=== PATIENT | female | born 1965 | race Caucasian/White ===

== ENCOUNTER → 2016-08-29 | Outpatient (CLI) | payer BC ==
--- NOTE | 2016-08-29 15:36 | DI ---
Indication: ITS.REASON: M54.2 NECK PAIN; G62.9 NEUROPATHY PROCEDURE: MRI CERVICAL SPINE W/O CONTRAS: Encounter: Initial Comparison: None Technique: Multiplanar multisequence MR imaging of the cervical spine was performed without contrast. Findings: Alignment of the cervical spine is within normal limits. No acute fracture. Prominent hemangioma noted within the C4 vertebra. The cervical and visualized upper thoracic spinal cord signal intensity is normal. The paraspinal soft tissues are unremarkable. Segmental analysis: C2-C3: Normal C3-C4: Mild uncovertebral degenerative changes contributing to mild bilateral neural foraminal narrowing. No significant central canal stenosis or focal disk protrusion. C4-C5: Bilobed disk osteophyte complex resulting in mild central canal and severe bilateral neural foraminal stenosis. C5-C6: Disk osteophyte complex compressing the thecal sac with moderate central canal stenosis and severe bilateral neural foraminal stenosis. C6-C7: Small central disk protrusion causing mild central canal stenosis. Mild to moderate bilateral neural foraminal stenosis. C7-T1: Normal Impression: Degenerative disk and facet disease with areas of central canal and neural foraminal stenosis. .
== END ==
LOC: IMA 14:13
DX: M47.892 Other spondylosis, cervical region (principal); M48.02 Spinal stenosis, cervical region; M50.121 Cervical disc disorder at C4-C5 level with radiculopathy; M50.223 Other cervical disc displacement at C6-C7 level; G62.9 Polyneuropathy, unspecified

== ENCOUNTER → 2016-09-02 | Outpatient (CLI) | payer BC | LOC: WC.BC 15:25 | DX: Z12.31 Encounter for screening mammogram for malignant neoplasm of breast (principal) | CPT/HCPCS: 77063; G0202 ==

== ENCOUNTER 2016-09-19 05:56 | Day surgery (SDC) | payer BC ==
[~2016-09-19] VITALS: Ht 154.9 cm; Wt 101.5 kg
[~2016-09-19 05:56] MED LIST: CARV6.252 PO; METF10002 PO; OMEP20CA10 PO; PHEN-742 PO; TRIA1TAB3 PO
[2016-09-19 06:18] VITALS: Ht 154.9 cm; Wt 101.5 kg
[2016-09-19 06:32] VITALS: BP 152/90; PULSE 85; RESP 16; TEMP 98.8; O2SAT 94
[2016-09-19] MEDS ORDERED: IRON (06:32)
[2016-09-19] MEDS ORDERED: DOCU100T10 PO (06:32)
[2016-09-19] MEDS ORDERED: PROPOFOL 500mg 50 ML IV ONE (06:59)
[2016-09-19] MEDS ORDERED: LR 1,000 ML IV SCH (07:00)
[2016-09-19] MEDS ORDERED: LIDOCAINE 1% (10mg/ml) 2ml SDV INJ ONE (07:00)
--- NOTE | 2016-09-19 07:11 | ANESPREOP ---
Anesthesia Record Date and Time DATE: 09/19/16 TIME: 07:09 Pre-Op Diagnosis anemia cancer screening Proposed Surgical Procedure COLONOSCOPY Allergies: Coded Allergies: No Known Allergies (Unverified , 09/19/16) Ht/Wt/BMI Height: 5 ' 1.00 " Weight: 101.500 kg BMI: 42.3 kg/m2 Vital Signs Date Time Temp Pulse Resp B/P Pulse Ox O2 Delivery O2 Flow Rate FiO2 09/19/16 06:32 98.8 85 16 152/90 94 Room Air Medications Inpatient Medications Current Medications Medications (Trade) Dose Ordered Sig/Yvonne Start Time Stop Time Status Last Admin Dose Admin Lactated Ringer's (Lactated Ringers) 1,000 ml @ 50 mls/hr Q20H 09/19/16 07:00 09/19/16 06:46 50 MLS/HR Carvedilol (Carvedilol) 6.25 Mg Tablet, 1 TAB PO BID, (Reported) Last Taken: on 09/18/16829 Docusate Sodium (Stool Softener) 100 Mg Tablet, 1 TAB PO BID, (Reported) Last Taken: on 09/18/16829 Metformin HCl (Metformin HCl) 1,000 Mg Tablet, 1 TAB PO BID, (Reported) Last Taken: on 09/18/16829 Omeprazole (Omeprazole) 20 Mg Capsule.dr, 20 MG PO ACB, (Reported) Take 1 capsule, by mouth, one time a day (before breakfast). Last Taken: on 09/18/16829 Phentermine HCl (Phentermine HCl) 30 Mg Capsule , 1 CAP PO QAM, (Reported) Last Taken: on 04/30/16 Triamterene/Hydrochlorothiazid (Triamterene-Hctz 37.5-25 mg Tb) 1 Each Tablet, 0.5 TAB PO DAILY, (Reported) Last Taken: on 09/18/16829 [Iron] , BID, (Reported) Last Taken: on 09/18/16829 Currently on Beta Akbar: Yes Beta Akbar Last Taken: 09-18-16 AT 0830 Medical/Surgical History Anesthesia PMH: Reports: *Hypertension, Glaucoma (ANGULAR-HAD LAZER SURG), Obesity, Reflux (RARELY), Denies: *Angina, *GA, Arthritis, CHF, CVA/Stroke/TIA, Cancer, Clotting Problems, Deep Vein Thrombosis, Hepatitis, Hiatal Hernia, Renal Disease, Seizures, Sleep Apnea Smoking Status: Former smoker Has pt. smoked today?: No Use Chewing Tobacco?: No Second Hand Exposure: No Substance Use Type: does not use Alcohol Intake: none HX of Last Menstrual Period: APRJIL 2016 Past Surgical History Orthopedic Surgeries: Yes - BILAT CARPAL TUNNEL Abdominal Surgeries: Genitourinary Surgeries: Cardiac Surgeries: Endocrine Surgeries: Reproductive Surgeries: Yes - tubal ligation Neurological Surgeries: Ear Surgeries: Nose Surgeries: Throat Surgeries: Other Surgeries: Yes - LAZER SURG ON EYES Anesthesia Adverse Reactions: FOUND none Family Hx of Anesthesia Advers: none Hx of Motion Sickness: No Pertinent Findings Test 09/19/16 06:10 Urine Test Negative (NEGATIVE) EKG Rhythm: Sinus Rhythm Physical Exam Respiratory: Lungs clear Cardiovascular: FOUND Regular rate, rhythm, FOUND Diastolic murmur Airway Assessment Mallampati Score: III TMD: 3 Fingerbreadths Neck Extension: Good Teeth: Chipped Teeth/Crowns Overall Assessment: May Be Diff Intubation ASA: 2 Plan Anesthesia Plan: TIVA Discussion Discussed risks/options/alternatives of anesthesia and questions answered. Patient consents. Nursing pain assessment noted. Present: Spouse Attestation Statement Prior to the delivery of any anesthetic medication, I examined the patient, developed the plan, obtained the patient's consent and discussed the risk and benefits of the procedure with the patient/guardian. ELDA RODRIGUEZ CRNA September 19, 2016 07:11
[2016-09-19] MEDS ORDERED: PROPOFOL 200mg 20 ML IV ONE (08:13)
[2016-09-19 08:18] VITALS: BP 105/55; PULSE 89; RESP 18; TEMP 97.1; O2SAT 100
[2016-09-19 08:30] VITALS: BP 134/71; PULSE 86; RESP 18; O2SAT 97
[2016-09-19 08:45] VITALS: BP 131/72; PULSE 82; RESP 18; O2SAT 98
--- NOTE | 2016-09-19 08:45 | ANESPO ---
Post-Op Note Date 09/19/16 Time: 08:45 Status Pt Participated in Evaluation: Pt participated in person Vital Signs Date Time Temp Pulse Resp B/P Pulse Ox O2 Delivery O2 Flow Rate FiO2 09/19/16 08:30 86 18 134/71 97 Room Air 09/19/16 08:18 97.1 6.00 Respiratory Function: Airway patent, Regular respirations Cardiovascular Function: Regular pulse Mental Status: Alert/oriented Pain Level Intensity: 0 Hydration: Taking po fluids Complications during Recovery None apparent Follow-Up Instructions Instructions Per Surgeon ELDA RODRIGUEZ CRNA September 19, 2016 08:45
--- NOTE | 2016-09-19 14:11 | OPNOTEF ---
DATE OF OPERATION 09/19/2016 PREOPERATIVE DIAGNOSIS Anemia. POSTOPERATIVE DIAGNOSIS Anemia, within normal limits. OPERATION Colonoscopy, no biopsies taken. SURGEON Aramis Thomas M.D. DESCRIPTION OF OPERATIVE PROCEDURE The patient was prepped with Colyte the evening prior to the procedure. She was placed in the left lateral position. After a benign digital rectal exam, the colonoscope was advanced to the cecum with cecal landmarks identified. The cecum, ascending colon, transverse colon and sigmoid showed no evidence of hemorrhage, mass lesions, ulcerations, polyps or inflammatory changes. She had no significant diverticular disease. The rectum and anus were clear. The colon was suctioned. The scope removed with patient tolerating the procedure well. She was stable post colonoscopy. Followup colonoscopy recommended 10 years for screening or sooner as clinically indicated. SHANNA
== END 2016-09-19 08:58 | disposition home or self-care (01) ==
LOC: NSC 05:56
DX: Z12.11 Encounter for screening for malignant neoplasm of colon (principal); D64.9 Anemia, unspecified; K30 Functional dyspepsia; E66.9 Obesity, unspecified; Z68.41 Body mass index [BMI] 40.0-44.9, adult; Z79.82 Long term (current) use of aspirin; Z79.899 Other long term (current) drug therapy; Z79.84 Long term (current) use of oral hypoglycemic drugs
CPT/HCPCS: 45378; 81025; J2704; J7120